=== PATIENT | male | born 1980 | race African-American/Black ===

== ENCOUNTER 2017-03-13 04:06 | Emergency (ER) | payer BC ==
--- NOTE | ~2017-03-13 | CT2 ---
[facility] A Service of [facility] RADIOLOGY TEXT RESULTS PATIENT: JESSICA JORDAN LOCATION: [facility] : 78 UNIT #: [id number] AGE: [address]: Shanique Willson MD SEX: M ORDER DR: [id number] [address] [place], [place] [address] [id number] MR#: [id number] Acc #: [id number] NAME: JESSICA JORDAN : 1980 SEX: M STUDY DATE/TIME: 03/13/2017 8:06 UNIT: [facility] ROOM: STUDY DESCRIPTION: CT Abd and Pelv W Cont Attending Physician: Shanique Willson M.D. Ordering Physician: Shanique Willson M.D. Primary Care Physician: No Primary Care Physician MEDICAL IMAGING REPORT This report is preliminary unless electronic signature is present EXAM Abdomen and pelvis CT with contrast, 03/13/2017. INDICATION 36-year-old male with lower abdominal pain since yesterday. History of hypertension and congestive heart failure. TECHNIQUE Contrast-enhanced abdomen and pelvis CT was performed and compared with 11/18/2014. This CT exam was performed with one or more of the following radiation dose reduction techniques: automatic exposure control, adjustment of mA and/or kV according to patient size, and iterative reconstruction. FINDINGS CT ABDOMEN: Included lung bases are clear. Aorta unremarkable with the exception of mild atherosclerotic change. Spleen, adrenal glands, and pancreas unremarkable. Gallbladder unremarkable. Mild fatty infiltration of the liver. Kidneys unremarkable. CT PELVIS: Bladder unremarkable. Prostate normal. No drainable fluid collection in the pelvis. At the junction of the distal descending and proximal sigmoid colon, there is short-segment inflammatory change and an inflamed diverticulum, most characteristic of acute diverticulitis. At this point, no abscess, free air, or bowel obstruction is present. Appendix normal. Inguinal canals unremarkable. No suspicious bone lesion. Degenerative change at L5-S1. IMPRESSION 1. Acute diverticulitis at the junction of the distal descending and proximal sigmoid colon. No complicating features such as abscess, bowel obstruction, or free air at this time. [facility] A Service of [facility] RADIOLOGY TEXT RESULTS PATIENT: JESSICA JORDAN LOCATION: [facility] : 78 UNIT #: [id number] AGE: [address]: Shanique Willson MD SEX: M ORDER DR: 2. The examination is otherwise essentially negative. The appendix is normal. Incidental mild fatty infiltration of the liver. Dictated by... Mc Craft M.D. THIS IS AN ELECTRONICALLY VERIFIED REPORT Mc Craft M.D. at 03/13/2017 4:29 PM JULY/dara TD: 03/13/2017 11:56 JOB #: [id number] MEDICAL IMAGING REPORT Page 1 of 1 COPY
[~2017-03-13 04:06] MED LIST: ASPIRIN81 MG PO; CIPRO PO; COLACE PO; FLAGYL PO; LISINOPRIL10 MG PO; LOPRESSOR PO; NITROSTAT0.4 MG SL; PLAVIX PO; SIMVASTATIN40 MG PO; VICODIN 5/1 TAB 5/50 PO
[2017-03-13 05:11] LABS: URINE SOURCE CLEAN CATCH
[2017-03-13 05:23] LABS: URINE APPEARANCE CLEAR; URINE BILIRUBIN NEG (NEG); URINE BLOOD NEG (NEG); URINE COLOR YELLOW; URINE GLUCOSE NEG (NEG); URINE KETONE NEG (NEG); URINE LEUKOCYTE ESTERASE NEG (NEG); URINE NITRATE NEG (NEG); URINE PH 5.5 (5-8); URINE PROTEIN NEG (NEG); URINE SPECIFIC GRAVITY 1.015 (1.003-1.035); URINE UROBILINOGEN 0.2 MG/DL (NEG)
[2017-03-13 05:28] LABS: CULTURE INDICATED? NO
[2017-03-13 05:43] LABS: BASOPHIL% 0.2 % (0-2.5); EOSINOPHIL# 0.2 X10e3 (0-0.7); EOSINOPHIL% 2.8 % (0.0-7.0); HEMOGLOBIN 14.8 gm/dL (13.0-16.0); LYMPHOCYTE# 3.5 X10e3 (1.0-3.5); LYMPHOCYTE% 43.1 % (17.0-45.0); MEAN CELL VOLUME 81.2 FL (83-96); MEAN CORPUSCULAR HEMOGLOBIN 26.2 PG (28-34); MEAN CORPUSCULAR HGB CONC 32.3 g/dL (30-36); MONOCYTE# 0.7 X10e3 (0-1.0); NEUTROPHIL# 3.6 X10e3 (1.5-7.1); NEUTROPHIL% 44.9 % (40-75); PLATELET COUNT 202 X10e3 (140-420); RED BLOOD COUNT 5.67 X10e (3.90-5.60); RED CELL DISTRIBUTION WIDTH 14.2 % (11.0-15.5); WHITE BLOOD COUNT 8.1 X10e3 (4.0-10.5)
[2017-03-13 05:45] LABS: DIFF IND NO
[2017-03-13 06:14] LABS: ALBUMIN SERUM 4.3 g/dL (3.5-5.0); BILIRUBIN, DIRECT 0.1 mg/dL (0.0-0.2); BILIRUBIN,INDIRECT 0.4 mg/dL (0.0-0.9); BILIRUBIN,TOTAL 0.5 mg/dL (0.2-2.0); CALCIUM SERUM 9.2 mg/dL (8.4-10.2); PROTEIN TOTAL SERUM 7.6 g/dL (6.0-8.3)
[2017-03-13] MEDS ORDERED: LASIX20 MG PO (10:53)
[2017-03-13] MEDS ORDERED: SIMVASTATIN40 MG PO (10:53)
[2017-03-13] MEDS ORDERED: CLOPIDOGREL75 MG PO (10:53)
[2017-03-13] MEDS ORDERED: LISINOPRIL10 MG PO (10:54)
[2017-03-13] MEDS ORDERED: LOPRESSOR PO (10:54)
[2017-03-13] MEDS ORDERED: PATIENT'S PHARMACY (10:58)
== END 2017-03-13 14:33 | disposition home or self-care (01) ==
LOC: CED 04:06
DX: K57.32 Diverticulitis of large intestine without perforation or abscess without bleeding (principal); I25.10 Atherosclerotic heart disease of native coronary artery without angina pectoris; I25.2 Old myocardial infarction; Z95.5 Presence of coronary angioplasty implant and graft; F17.200 Nicotine dependence, unspecified, uncomplicated; Z79.899 Other long term (current) drug therapy
CPT/HCPCS: 36415; 74177; 80048; 80076; 81003; 82150; 83690; 85025; 96361; 96365; 96367; 96375; 99284; J1956; J2270; J2405; Q9967

== ENCOUNTER 2017-06-28 06:45 | Emergency (ER) | payer BC ==
--- NOTE | ~2017-06-28 | CT2 ---
[facility] A Service of [facility] RADIOLOGY TEXT RESULTS PATIENT: JESSICA JORDAN LOCATION: [facility] : 78 UNIT #: [id number] AGE: [address]: Mauricio Barraza SEX: M ORDER DR: [id number] [facility]. [place], [place] [address] [id number] MR#: [id number] Acc #: [id number] NAME: JESSICA JORDAN : 1980 SEX: M STUDY DATE/TIME: 06/28/2017 09:18 UNIT: [facility] ROOM: STUDY DESCRIPTION: CT Abd and Pelv W Cont Attending Physician: Mauricio Barraza R.N. Ordering Physician: Mauricio Barraza R.N. Primary Care Physician: Primary Care Physician No MEDICAL IMAGING REPORT This report is preliminary unless electronic signature is present EXAM CT abdomen and pelvis with contrast, 06/28/2017 09:18 hours HISTORY 36-year-old with severe left lower quadrant abdominal pain for 1 day with progression of symptoms since yesterday. History of prior episode of diverticulitis. COMPARISON 03/13/[address] images were obtained from the lung bases through the pubic symphysis with intravenous contrast only. Sagittal and coronal reconstructions were performed. Contrast was Isovue-370 100 mL IV. Total exam DLP 706 mGy-cm. This CT exam was performed with one or more of the following radiation dose reduction techniques: automatic exposure control, adjustment of mA and/or kV according to patient size, and iterative reconstruction. FINDINGS Images through the lung bases are clear. Images through the abdomen with contrast demonstrate a normal appearance to the liver, spleen, pancreas, gallbladder and bile ducts. The adrenal glands are normal. The kidneys enhance normally. No mass or stone seen. There is no ureterectasis or ureteral calculus. There is atherosclerotic change of the abdominal aorta without aneurysm. Unopacified stomach is contracted. The small bowel is nondistended. No small bowel wall thickening seen. The appendix is normal. [facility] A Service [facility] RADIOLOGY TEXT RESULTS PATIENT: JESSICA JORDAN LOCATION: [facility] : 78 UNIT #: [id number] AGE: [address]: Mauricio Barraza SEX: M ORDER DR: The colon demonstrates a small to moderate amount of stool. There is subtle wall thickening at the junction of descending colon and sigmoid colon just proximal to the area of previous inflammatory change in the sigmoid colon seen on 03/13/2017. This could represent very subtle early bowel wall thickening of diverticulitis or colitis. There is however no stranding or surrounding fluid. There is air-filled distension of the rectum and the distal sigmoid colon. IMPRESSION 1. Previous inflammatory changes at the sigmoid colon have resolved since the CT of 03/13/2017. There is underlying diverticulosis. 2. At the junction of the descending colon and sigmoid colon just proximal to the area of previous inflammation, there is question of subtle circumferential wall thickening of the colon which could represent early infectious or inflammatory change. There are diverticula in this area however there is no pericolonic stranding, fluid or evidence of perforation. Findings could represent subtle evidence of early diverticulitis or colitis. 3. Normal appendix. 4. No renal or ureteral calculi. Dictated by... Nellie Freedman M.D. THIS IS AN ELECTRONICALLY VERIFIED REPORT Nellie Freedman M.D. at 06/28/2017 2:31 PM David TD: 06/28/2017 10:42 JOB #: [id number] MEDICAL IMAGING REPORT Page 1 of 1 COPY
[~2017-06-28 06:45] MED LIST changes: +CLOPIDOGREL75 MG PO; +LASIX20 MG PO; +PATIENT'S PHARMACY
[2017-06-28 07:40] LABS: URINE SOURCE CLEAN CATCH
[2017-06-28 07:47] LABS: URINE APPEARANCE CLEAR; URINE BILIRUBIN NEG (NEG); URINE BLOOD NEG (NEG); URINE COLOR YELLOW; URINE GLUCOSE NEG (NEG); URINE KETONE NEG (NEG); URINE LEUKOCYTE ESTERASE NEG (NEG); URINE NITRATE NEG (NEG); URINE PH 5.5 (5-8); URINE PROTEIN NEG (NEG)
[2017-06-28 07:49] LABS: BASOPHIL# 0.1 X10e3 (0-0.3); BASOPHIL% 1.2 % (0-2.5); EOSINOPHIL# 0.2 X10e3 (0-0.7); HEMATOCRIT 42.2 % (38.0-50.0); HEMOGLOBIN 14.3 gm/dL (13.0-16.0); LYMPHOCYTE% 58.7 % (17.0-45.0); MEAN CELL VOLUME 79.6 FL (83-96); MEAN CORPUSCULAR HEMOGLOBIN 26.9 PG (28-34); MEAN CORPUSCULAR HGB CONC 33.8 g/dL (30-36); MEAN PLATELET VOLUME 7.7 FL (6.5-11.5); MONOCYTE# 0.5 X10e3 (0-1.0); MONOCYTE% 10.3 % (3.0-12.0); NEUTROPHIL# 1.3 X10e3 (1.5-7.1); NEUTROPHIL% 25.8 % (40-75); PLATELET COUNT 190 X10e3 (140-420); RED BLOOD COUNT 5.31 X10e (3.90-5.60); RED CELL DISTRIBUTION WIDTH 14.1 % (11.0-15.5); WHITE BLOOD COUNT 5.2 X10e3 (4.0-10.5)
[2017-06-28 07:51] LABS: DIFF IND YES
[2017-06-28 07:52] LABS: CULTURE INDICATED? NO
[2017-06-28 08:21] LABS: BILIRUBIN, DIRECT 0.1 mg/dL (0.0-0.2); BILIRUBIN,INDIRECT 0.8 mg/dL (0.0-0.9); BILIRUBIN,TOTAL 0.9 mg/dL (0.2-2.0); BUN/CREATININE RATIO 11.11; CALCIUM SERUM 8.9 mg/dL (8.4-10.2); CREATININE SERUM 0.9 mg/dL (0.6-1.4); POTASSIUM 3.8 mmol/L (3.5-5.1)
[2017-06-28 08:22] LABS: PLATELET ESTIMATE NORMAL (NORMAL)
== END 2017-06-28 10:51 | disposition home or self-care (01) ==
LOC: CED 06:45
PROVIDERS: Nurse Practitioner
DX: K57.32 Diverticulitis of large intestine without perforation or abscess without bleeding (principal); I10 Essential (primary) hypertension; F17.210 Nicotine dependence, cigarettes, uncomplicated; Z98.890 Other specified postprocedural states
CPT/HCPCS: 36415; 74177; 80048; 80076; 81003; 82150; 83690; 85025; 96361; 96374; 96375; 99284; C9113; J2270; J2405; Q9967